=== PATIENT | male | born 1995 | race Caucasian/White ===

== ENCOUNTER 2017-01-12 21:27 | Inpatient (IN) | payer OTHER ==
[2017-01-12] MEDS ORDERED: RX INFO: IV CONTRAST WAS GIVEN 1 EACH MISC MISCELLANE PRN (23:53)
[2017-01-12] MEDS ORDERED: SODIUM CHLORIDE 0.9% 1,000 ML IV STA (23:53)
[2017-01-12] MEDS ORDERED: .ACETAMINOPHEN IV (PEDS) 1,000 MG in EMPTY BAG 1 BAG IVPB STA (23:53)
--- NOTE | 2017-01-12 23:56 | ED ---
Abdominal Pain HPI - General Source: patient, family, RN notes reviewed Mode of arrival: ambulatory Limitations: no limitations <Vicenta Mendieta - Last Filed: 01/13/17 02:54> <Ayaz Darden - Last Filed: 01/13/17 02:57> - General Chief Complaint: Abdominal Pain Stated Complaint: Abd Pain Time Seen by Provider: 01/12/17 23:49 - History of Present Illness Initial Comments: 21-year-old male presents to the emergency department with a chief complaint of right lower quadrant abdominal pain. Patient states that he started with just kind of generalized abdominal pain he tried to go the bathroom felt as if he was constipated surgical laxative. Patient states now all his pain has moved to the right lower quadrant. Patient stateshe started Around 6:00 As Well. Mental One Episode of Nausea. Patient States It's Very Tender When He Touches There Is Some He Was Concerned. Patient Denies Any Significant Health. Patient States the Pain Is about a 5 Out Of 10. Patient States That He Was Concerned Due To the Worsening Symptoms We Thought That He Should Be Evaluated. Patient denies any recent shortness of breath, chest pain, back pain, vomiting , numbness or tingling, dysuria or hematuria, constipation or diarrhea, headaches or visual changes, or any other current symptoms. (Vicenta Mendieta) - Related Data Home Medications Medication Instructions Recorded Confirmed No Known Home Medications [No 01/12/17 01/12/17 Known Home Medications] Allergies Allergy/AdvReac Type Severity Reaction Status Date / Time Penicillins Allergy Rash/Hives Verified 01/12/17 23:39 Review of Systems ROS Other: All systems not noted in ROS Statement are negative. <Vicenta Mendieta - Last Filed: 01/13/17 02:54> ROS Other: All systems not noted in ROS Statement are negative. <Ayaz Darden - Last Filed: 01/13/17 02:57> ROS Statement: Those systems with pertinent positive or pertinent negative responses have been documented in the HPI. Past Medical History Past Medical History: No Reported History History of Any Multi-Drug Resistant Organisms: None Reported Past Surgical History: Adenoidectomy Past Psychological History: No Psychological Hx Reported Smoking Status: Never smoker Past Alcohol Use History: None Reported Past Drug Use History: None Reported <Vicenta Mendieta - Last Filed: 01/13/17 02:54> General Exam Limitations: no limitations <Vicenta Mendieta - Last Filed: 01/13/17 02:54> <Ayaz Darden - Last Filed: 01/13/17 02:57> - General Exam Comments Initial Comments: General: The patient is awake and alert, in no distress, and does not appear acutely ill. Eye: Pupils are equal, round and reactive to light, extra-ocular movements are intact; there is normal conjunctiva bilaterally. No signs of icterus. Ears, nose, mouth and throat: There are moist mucous membranes. Neck: The neck is supple, there is no tenderness. Cardiovascular: There is a regular rate and rhythm. No murmur, rub or gallop is appreciated. Respiratory: Lungs are clear to auscultation, respirations are non-labored, breath sounds are equal. No wheezes, stridor, rales, or rhonchi. Gastrointestinal: Soft, non-distended, tender right lower quadrant of the abdomen without masses or organomegaly noted. There is no rebound or guarding present. No CVA tenderness. Bowel sounds are unremarkable. Back: There is no tenderness to palpation in the midline. There is no obvious deformity. No rashes noted. Musculoskeletal: Normal ROM, no tenderness, There is no pedal edema. There is no calf tenderness or swelling. Sensation intact. Pulses equal bilaterally 2+. Neurological: CN II-XII intact, There are no obvious motor or sensory deficits. Coordination appears grossly intact. Speech is normal. Skin: Skin is warm and dry and no rashes or lesions are noted. Psychiatric: Cooperative, appropriate mood & affect, normal judgment. (Vicenta Mendieta) Course <Vicenta Mendieta - Last Filed: 01/13/17 02:54> <Ayaz Darden - Last Filed: 01/13/17 02:57> Vital Signs 01/12/17 01/13/17 21:41 00:43 Temperature 100.7 F H 99 F Pulse Rate 68 100 Respiratory 20 20 Rate Blood Pressure 133/77 121/66 O2 Sat by Pulse 99 99 Oximetry - Reevaluation(s) Reevaluation #1: 01/13/17 02:57 I did personally do a paced states evaluation the patient did discuss findings with him and his father. Patient does have McBurney point tenderness there is elevation of the white count. CAT scan does show evidence of appendicitis with some fluid. I did discuss the case with Dr. Younger. Patient will be admitted to her with a.m. surgery pending. Patient is ALLERGIC to penicillin and will be placed on Cipro and Flagyl. (Ayaz Darden) Medical Decision Making - Lab Data Result diagrams: 01/13/17 00:17 01/13/17 00:17 - Radiology Data Radiology results: report reviewed, image reviewed <Vicenta Mendieta - Last Filed: 01/13/17 02:54> - Lab Data Result diagrams: 01/13/17 00:17 01/13/17 00:17 <Ayaz Darden - Last Filed: 01/13/17 02:57> - Medical Decision Making 21-year-old male presents emergency department with a chief complaint of abdominal pain. This and the patient does appear to have an acute appendicitis. This time patient does not have any surgical affiliation. At this time the patient case was discussed with Dr. Younger who states that he she would like the patient started on Cipro and Flagyl and they will arrange for surgery. (Vicenta Mendieta) - Lab Data Lab Results 01/12/17 01/13/17 01/13/17 Range/Units 00:17 00:17 00:17 WBC 16.4 H (4.0-11.0) k/uL RBC 5.38 (4.30-5.90) m/uL Hgb 16.0 (13.0-17.5) gm/dL Hct 47.2 (39.0-53.0) % MCV 87.8 (80.0-100.0) fL MCH 29.7 (25.0-35.0) pg MCHC 33.9 (31.0-37.0) g/dL RDW 12.8 (11.5-15.5) % Plt Count 223 (150-450) k/uL Neutrophils % 83 % Lymphocytes % 12 % Monocytes % 4 % Eosinophils % 1 % Basophils % 0 % Neutrophils # 13.6 H (1.3-7.7) k/uL Lymphocytes # 1.9 (1.0-4.8) k/uL Monocytes # 0.6 (0-1.0) k/uL Eosinophils # 0.1 (0-0.7) k/uL Basophils # 0.0 (0-0.2) k/uL Sodium 140 (137-145) mmol/L Potassium 4.3 (3.5-5.1) mmol/L Chloride 101 (98-107) mmol/L Carbon Dioxide 24 (22-30) mmol/L Anion Gap 15 mmol/L BUN 8 L (9-20) mg/dL Creatinine 0.95 (0.66-1.25) mg/dL Est GFR (MDRD) Af Amer >60 (>60 ml/min/1.73 sqM) Est GFR (MDRD) Non-Af >60 (>60 ml/min/1.73 sqM) Glucose 92 (74-99) mg/dL Calcium 9.6 (8.4-10.2) mg/dL Total Bilirubin 1.9 H (0.2-1.3) mg/dL AST 85 H (17-59) U/L ALT 31 (21-72) U/L Alkaline Phosphatase 57 (38-126) U/L Total Protein 7.6 (6.3-8.2) g/dL Albumin 4.7 (3.5-5.0) g/dL Amylase 34 (30-110) U/L Lipase 27 (23-300) U/L Urine Color Urine Appearance (Clear) Urine pH (5.0-8.0) Ur Specific [place] (1.001-1.035) Urine Protein (Negative) Urine Glucose (UA) (Negative) Urine Ketones (Negative) Urine Blood (Negative) Urine Nitrate (Negative) Urine Bilirubin (Negative) Urine Urobilinogen (<2.0) mg/dL Ur Leukocyte Esterase (Negative) Urine RBC (0-5) /hpf Urine WBC (0-5) /hpf Urine Mucus (None) /hpf Heterophile Antibody Negative (Negative) Influenza Type A RNA (Not Detectd) Influenza Type B (PCR) (Not Detectd) 01/13/17 01/13/17 Range/Units 00:17 01:19 WBC (4.0-11.0) k/uL RBC (4.30-5.90) m/uL Hgb (13.0-17.5) gm/dL Hct (39.0-53.0) % MCV (80.0-100.0) fL MCH (25.0-35.0) pg MCHC (31.0-37.0) g/dL RDW (11.5-15.5) % Plt Count (150-450) k/uL Neutrophils % % Lymphocytes % % Monocytes % % Eosinophils % % Basophils % % Neutrophils # (1.3-7.7) k/uL Lymphocytes # (1.0-4.8) k/uL Monocytes # (0-1.0) k/uL Eosinophils # (0-0.7) k/uL Basophils # (0-0.2) k/uL Sodium (137-145) mmol/L Potassium (3.5-5.1) mmol/L Chloride (98-107) mmol/L Carbon Dioxide (22-30) mmol/L Anion Gap mmol/L BUN (9-20) mg/dL Creatinine (0.66-1.25) mg/dL Est GFR (MDRD) Af Amer (>60 ml/min/1.73 sqM) Est GFR (MDRD) Non-Af (>60 ml/min/1.73 sqM) Glucose (74-99) mg/dL Calcium (8.4-10.2) mg/dL Total Bilirubin (0.2-1.3) mg/dL AST (17-59) U/L ALT (21-72) U/L Alkaline Phosphatase (38-126) U/L Total Protein (6.3-8.2) g/dL Albumin (3.5-5.0) g/dL Amylase (30-110) U/L Lipase (23-300) U/L Urine Color Yellow Urine Appearance Clear (Clear) Urine pH 6.0 (5.0-8.0) Ur Specific [place] 1.045 H (1.001-1.035) Urine Protein 1+ H (Negative) Urine Glucose (UA) Negative (Negative) Urine Ketones 3+ H (Negative) Urine Blood Negative (Negative) Urine Nitrate Negative (Negative) Urine Bilirubin Negative (Negative) Urine Urobilinogen 2.0 (<2.0) mg/dL Ur Leukocyte Esterase Negative (Negative) Urine RBC 1 (0-5) /hpf Urine WBC 3 (0-5) /hpf Urine Mucus Few H (None) /hpf Heterophile Antibody (Negative) Influenza Type A RNA Not Detected (Not Detectd) Influenza Type B (PCR) Not Detected (Not Detectd) Disposition Decision Date: 01/13/17 Decision Time: 02:29 <Vicenta Mendieta - Last Filed: 01/13/17 02:54> <Ayaz Darden - Last Filed: 01/13/17 02:57> Clinical Impression: Acute appendicitis with rupture Disposition: [facility] Condition: Stable Referrals: Gurjit Agarwal MD [Primary Care Provider] - 1-2 days
[2017-01-12] MEDS ORDERED: ACETAMINOPHEN IV (For NPO) 1,000 MG in EMPTY BAG 1 BAG IVPB STA (23:59)
[2017-01-13 00:28] LABS: Basophils % (A) 0 %; CHCM 34.2; Eosinophils # (A) 0.1 k/uL (0-0.7); Eosinophils % (A) 1 %; HCT 47.2 % (39.0-53.0); HDW 2.64; Luc # (Auto) 0.15; Luc % (Auto) 1; Lymphocytes # (A) 1.9 k/uL (1.0-4.8); Lymphocytes % (A) 12 %; MCH 29.7 pg (25.0-35.0); MCHC 33.9 g/dL (31.0-37.0); MCV 87.8 fL (80.0-100.0); Mean Platelet Volume 8.4; Monocytes # (A) 0.6 k/uL (0-1.0); Monocytes % (A) 4 %; Neutrophils # (A) 13.6 k/uL (1.3-7.7); Neutrophils % (A) 83 %; RBC 5.38 m/uL (4.30-5.90); RDW 12.8 % (11.5-15.5); WBC 16.4 k/uL (4.0-11.0); WBC (Perox) 16.52
[2017-01-13 00:38] LABS: ALT 31 U/L (21-72); AST 85 U/L (17-59); Alkaline Phosphatase 57 U/L (38-126); Amylase 34 U/L (30-110); Anion Gap 15 mmol/L; Blood Urea Nitrogen 8 mg/dL (9-20); Calcium 9.6 mg/dL (8.4-10.2); Carbon Dioxide 24 mmol/L (22-30); Chloride 101 mmol/L (98-107); Glucose 92 mg/dL (74-99); Non-African American GFR(MDRD) >60 (>60 ml/min/1.73 sqM); Potassium 4.3 mmol/L (3.5-5.1); Sodium 140 mmol/L (137-145); Total Bilirubin 1.9 mg/dL (0.2-1.3); Total Protein 7.6 g/dL (6.3-8.2)
[2017-01-13 01:28] LABS: Appearance,Urine Clear (Clear); Bilirubin,Urine Negative (Negative); Glucose,Urine (UA) Negative (Negative); Ketones,Urine 3+ (Negative); Leukocyte Esterase,Urine Negative (Negative); Mucus,Urine Few /hpf; Nitrite,Urine Negative (Negative); Particle Count 8748; Protein,Urine 1+ (Negative); RBC,Urine 1 /hpf (0-5); Specific Gravity,Urine 1.045 (1.001-1.035); UA Billing (MACRO vs. MICRO) MICRO; WBC,Urine 3 /hpf (0-5)
--- NOTE | 2017-01-13 02:05 | CT ---
EXAMINATION TYPE: CT abdomen pelvis w con DATE OF EXAM: 01/13/2017 1:11 AM COMPARISON: NONE HISTORY: pain, r/o appy CT DLP: 316.30 mGycm Automated exposure control for dose reduction was used. TECHNIQUE: Helical acquisition of images was performed from the lung bases through the pelvis. CONTRAST: Performed without Oral Contrast and with IV Contrast, patient injected with 100 mL of Omnipaque 300. FINDINGS: LUNG BASES: No significant abnormality is appreciated. LIVER/GB: No significant abnormality is appreciated. PANCREAS: No significant abnormality is seen. SPLEEN: No significant abnormality is seen. ADRENALS: No significant abnormality is seen. KIDNEYS: No significant abnormality is seen. RETROPERITONEAL ADENOPATHY: None visualized REPRODUCTIVE ORGANS: No significant abnormality is seen URINARY BLADDER: No significant abnormality is seen. PELVIC ADENOPATHY: None visualized. OSSEOUS STRUCTURES: No significant abnormality is seen. BOWEL: The appendix measures 8 mm in transverse diameter in the axial image 45 and showed surrounding phlegm on and inflammatory process with mild fluid collection with mucosal wall thickening and is also visua lized in the coronal images 35 and 37 and are suspicious for acute appendicitis most likely ruptured appendix. [id number] fecal material and gas is noted in the colon without significant obstruction. OTHER: IMPRESSION: ACUTE APPENDICITIS CHANGES MOST LIKELY WITH A RUPTURED APPENDIX DESCRIBED ABOVE WITH SMALL AMOUNT OF FREE FLUID SURROUNDING THE APPENDIX. A PHONE REPORT IS GIVEN TO MARIELLE CHO AT THE TIME OF THE DICTATION.
[2017-01-13] MEDS ORDERED: NALOXONE 0.4 MG/ML 1 ML VIAL IV PRN (02:30)
[2017-01-13] MEDS ORDERED: HYDROmorphone 1 MG/ML 1 ML SYRINGE IV PRN (02:30)
[2017-01-13] MEDS ORDERED: ACETAMINOPHEN TAB 325 MG TAB PO PRN (02:30)
[2017-01-13] MEDS ORDERED: ONDANSETRON 4 MG/2 ML VIAL IVP PRN (02:30)
[2017-01-13] MEDS ORDERED: HYDROcodone/APAP 5-325MG 1 EACH TAB PO PRN (02:30)
[2017-01-13] MEDS ORDERED: LEVOFLOXACIN 500MG-D5W PMX 500 MG in DEXTROSE/WATER 1 100ML.BAG IVPB STA (02:55)
[2017-01-13] MEDS ORDERED: metroNIDAZOLE-NS PMX 500 MG in SALINE 1 100ML.BAG IVPB STA (02:55)
[2017-01-13] MEDS: SODIUM CHLORIDE 0.9% 1,000 ML IV SCH ×2 (02:58→17:55)
[2017-01-13 03:54] VITALS: BMI 25.1
--- NOTE | 2017-01-13 04:51 | P.GSHP ---
History of Present Illness H&P Date: 01/13/17 Chief Complaint: Acute appendicitis 21 yr old male presents with right lower quadrant pain of 1 day duration.Pain started in epigastric region and then travelled to right lower quadrant. No fever,chills. Loss of appetite present - Review of Systems Comment: All negative except stated in GAMBELL Past Medical History Past Medical History: No Reported History History of Any Multi-Drug Resistant Organisms: None Reported Past Surgical History: Adenoidectomy Past Anesthesia/Blood Transfusion Reactions: No Reported Reaction Past Psychological History: No Psychological Hx Reported Smoking Status: Never smoker Past Alcohol Use History: None Reported Additional Past Alcohol Use History / Comment(s): very rare alcohol and marijuana use Past Drug Use History: None Reported - Past Family History Mother Additional Family Medical History / Comment(s): CHF Medications and Allergies Home Medications Medication Instructions Recorded Confirmed Type No Known Home Medications [No 01/12/17 01/12/17 History Known Home Medications] Allergies Allergy/AdvReac Type Severity Reaction Status Date / Time Penicillins Allergy Rash/Hives Verified 01/12/17 23:39 Surgical - Exam Vital Signs Temp Pulse Resp BP Pulse Ox 100.7 F H 68 20 133/77 99 01/12/17 21:41 01/12/17 21:41 01/12/17 21:41 01/12/17 21:41 01/12/17 21:41 General: A&Ox3 Chest: B/L BS+ Abdomen: Tender in RLQ with localized peritonitis Results - Labs 01/13/17 00:17 01/13/17 00:17 - Imaging CT scan - abdomen: other (CT scan reviewed- acute appendicitis) Assessment and Plan (1) Acute appendicitis with rupture Status: Acute Plan: 1. Laparoscopic appenectomy possible open 2. Risks, benefits and potential complications discussed including bleeding, infection, abscess and partial cecetomy 3. IV hydration 4. IV abx 5. Bilateral Scds
[2017-01-13] MEDS ORDERED: ONDANSETRON 4 MG/2 ML VIAL ONE (06:15)
[2017-01-13] MEDS ORDERED: GLYCOPYRROLATE 0.2 MG/ML 2 ML VIAL ONE (06:15)
[2017-01-13] MEDS ORDERED: MIDAZOLAM 2 MG/2 ML VIAL ONE (06:15)
[2017-01-13] MEDS ORDERED: fentaNYL (PF) 50 MCG/ML 2 ML AMP ONE (06:15)
[2017-01-13] MEDS ORDERED: LIDOCAINE 1% INJ 10MG/ML (20 ML MDV) ONE (06:15)
[2017-01-13] MEDS ORDERED: NEOSTIGMINE 1 MG/ML 10 ML VIAL ONE (06:15)
[2017-01-13] MEDS ORDERED: PROPOFOL 10 MG/ML 20 ML VIAL IV ONE (06:15)
[2017-01-13] MEDS ORDERED: ROCURONIUM BROMIDE 10 MG/ML 10 ML VIAL IV ONE (06:15)
[2017-01-13] MEDS ORDERED: KETOROLAC 30 MG/ML 1 ML VIAL ONE (06:15)
[2017-01-13] MEDS ORDERED: diphenhydrAMINE 50 MG/ML 1 ML VIAL ONE (06:15)
[2017-01-13] MEDS ORDERED: SODIUM CHLORIDE 0.9% 1,000 ML IV ONE (06:20)
[2017-01-13] MEDS ORDERED: BUPIVACAIN-EPI 0.25%-1:200,000 30 ML VIAL SQ ONE ×3 (06:42)
[2017-01-13] MEDS ORDERED: LACTATED RINGERS 1,000 ML IV ONE ×2 (06:47→08:02)
[2017-01-13 07:34] VITALS: RESP 16
[2017-01-13 08:42] VITALS: TEMP 97.2
[2017-01-13 13:36] VITALS: BP 137/79; PULSE 90
--- NOTE | 2017-01-13 13:41 | P.DS ---
Providers Date of admission: 01/13/17 02:57 Expected date of discharge: 01/13/17 Attending physician: Radha Younger Primary care physician: Gurjit Agarwal [facility] Course: Very pleasant 21-year-old male who presented on the day of admission to the emergency room with a 1 day duration of experiencing right lower quadrant pain. Patient stated it started in the epigastric region radiated to the right lower quadrant. Denied any fever chills. Denied a loss of appetite denied any change in bowel habits. Patient stated at first he thought he was constipated. He became concerned when the pain persisted involving the right lower quadrant. Patient stated he had one episode of a nausea sensation. Subsequently the patient did come into the emergency room to be evaluated for the above-mentioned symptoms patient was seen in the emergency room. Was noted to have a temp of 100.7. White count 16.4. Patient was started on Cipro and Flagyl. The CAT scan did show evidence of appendicitis with some fluid. Patient was seen by Dr. Younger patient was taken to the operating room on January 13 where he underwent a laparoscopic appendectomy for acute appendicitis with rupture. Postop patient remained afebrile complaint Tylenol is effective for pain Impression discharge diagnosis Present on admission persistent right lower quadrant pain with nausea vomiting suspect due to acute appendicitis Status post laparoscopic appendectomy for acute appendicitis with rupture Present on admission febrile leukocytosis suspect due to acute pancreatitis The above dictated assessment and findings were discussed with dr younger Impression and the plan of care have been dictated as directed. Jeanette Naranjo nurse practitioner acting as a scribe for dr younger Patient Condition at Discharge: Stable Plan - Discharge Summary New Discharge Prescriptions: Acetaminophen Tab [Tylenol Tab] 650 mg PO Q6H PRN #30 tablet PRN Reason: Mild Pain Ibuprofen [Motrin] 200 mg PO Q6HR PRN #30 tab PRN Reason: Mild Pain Discharge Medication List Acetaminophen Tab [Tylenol Tab] 650 mg PO Q6H PRN #30 tablet 01/13/17 [Rx] Ibuprofen [Motrin] 200 mg PO Q6HR PRN #30 tab 01/13/17 [Rx] Follow up Appointment(s)/Referral(s): Radha Younger MD [STAFF PHYSICIAN] - 01/18/17 2:00 pm Gurjit Agarwal MD [Primary Care Provider] - 1 Week Activity/Diet/Wound Care/Special Instructions: No heavy lifting until seen in a follow-up visit with Dr. Younger Discharge Disposition: HOME SELF-CARE
[2017-01-13] MEDS ORDERED: metroNIDAZOLE-NS PMX 500 MG in SALINE 1 100ML.BAG IVPB SCH (16:00)
[2017-01-14] MEDS ORDERED: LEVOFLOXACIN 500MG-D5W PMX 500 MG in DEXTROSE/WATER 1 100ML.BAG IVPB SCH (06:00)
--- NOTE | 2017-01-19 08:17 | P.OP ---
Date of Procedure: 01/13/17 Preoperative Diagnosis: Acute appendicitis Postoperative Diagnosis: Same Procedure(s) Performed: Laparoscopic appendectomy Implants: NA Anesthesia: GETA, local Surgeon: Radha Younger Pathology: other Condition: stable Disposition: PACU Indications for Procedure: 21 years old male presents with acute right lower quadrant pain. Computed tomography scan suggestive of acute appendicitis. Informed consent obtained and patient elected to undergo laparoscopic appendicectomy possible open. Risks , benefits and potential complications including bleeding, infection were explained. Operative Findings: Acute appendicitis Description of Procedure: The patient was brought to the operating room and placed in supine position with left arm tucked and a footboard was placed. General anesthesia with endotracheal intubation was performed as per anesthesia team. A Higgins catheter was inserted under sterile aseptic precautions. Chlorhexidine was used to prep the abdomen followed by application of sterile drapes. A timeout was performed to verify correct patient and correct procedure. Patient was confirmed to receive perioperative IV antibiotics, subcutaneous heparin for VTE prophylaxis and bilateral SCDs were placed. A 5 mm skin incision was made in the left anterior axillary line and a Veress needle was inserted into the peritoneal cavity and CO2 insufflated to a pressure of 15 mmHg. A 5 mm Optiview trocar was loaded on a 5 mm 30 laparoscope and peritoneal cavity was entered under direct vision. An additional 5 mm trocar was placed in the suprapubic location in midline and a 12 mm trocar in the supraumbilical location. Patient was placed in Trendelenburg with right side up. The appendix was identified. It was dilated and inflamed. There were fibrinopurulent exudates in the right lower quadrant. The appendix was grasped using a laparoscopic Jose instrument. A suction irrigation device was used to gently dissecting appendix from the surrounding tissue. All the fibrinous exudates were removed. A window was made in the mesoappendix close to the cecal base using a [place] dissector. Laparoscopic Ligasure was used to divide the mesoappendix. No bleeding noted from the mesoappendiceal stump. The appendix was divided at its base, at the confluence of three tenia using Ethicon stapler 45 blue load. The staple line was intact without evidence of bleeding. The appendix was placed in an endocatch bag and was retrieved through the infraumbilical port site. All the trocar sites were examined and no evidence of bleeding. Excess fluid was suctioned out. The 12 mm trocar site was closed using three transfascial sutures of 0 Vicryl which were placed using a [email or web address] device. Local anesthetic was infiltrated along all the ports sites. The sponge, instrument and needle count were correct x2. CO2 gas was evacuated and trocars were removed. 4-0 Monocryl was used to close the skin incisions followed by Dermabond skin glue. Higgins catheter was discontinued. Patient tolerated the procedure well and was taken to post anesthesia care unit in stable condition.
== END 2017-01-13 18:50 | disposition home or self-care (01) | DRG 340 ==
LOC: EC 21:27 → 6PED 01-13 02:57
PROVIDERS: ADMIT Surgery; ATTEND Surgery
PROC: 0DTJ4ZZ Resection of Appendix, Percutaneous Endoscopic Approach (ICD-10-PCS; principal; 2017-01-13 06:00)
DX: K35.2 Acute appendicitis with generalized peritonitis (principal); F12.90 Cannabis use, unspecified, uncomplicated; Z88.0 Allergy status to penicillin; Z82.49 Family history of ischemic heart disease and other diseases of the circulatory system
CPT/HCPCS: 36415; 74177; 80053; 81001; 82150; 83690; 85025; 86308; 86850; 86900; 86901; 87040; 87502; 88304; 96365; 96367; 99285

== ENCOUNTER 2018-02-12 10:31 | Emergency (ER) | payer OTHER ==
--- NOTE | 2018-02-12 11:15 | ED ---
ENT HPI - General Chief complaint: ENT Stated complaint: left ear pain Time Seen by Provider: 02/12/18 10:41 Source: patient, RN notes reviewed Mode of arrival: ambulatory Limitations: no limitations - History of Present Illness Initial comments: This is a 22-year-old male who started developing left ear pain with congestion 3 days ago who 2 days ago started Keflex who presents today stating his pain is better but he still having drainage and discharge and hearing out of his left ear. He denies any fevers chills sweats he does have a slight cough he believes is secondary to his nasal drainage. No head neck or back pain no other symptoms at this time he states he rarely gets any type of upper respiratory infection. He does not have a sore throat. He still has his tonsils with did have adenoidectomy in the past. MD complaint: ear pain - Related Data Home Medications Medication Instructions Recorded Confirmed Cephalexin [Keflex] 500 mg PO TID 02/12/18 02/12/18 Previous Rx's Medication Instructions Recorded Azithromycin [Zithromax Z-pack] 250 mg PO DIRECTED #6 tab 02/12/18 Ciprofloxacin-Dexameth [Ciprodex 4 drops LEFT EAR BID #3 ml 02/12/18 Otic Susp] Guaifenesin/Pseudoephedrne HCl 1 each PO Q12HR #14 tab.er.12h 02/12/18 [Mucinex D ER Tablet] Allergies Allergy/AdvReac Type Severity Reaction Status Date / Time Penicillins Allergy Rash/Hives Verified 02/12/18 10:45 Review of Systems ROS Statement: Those systems with pertinent positive or pertinent negative responses have been documented in the HPI. ROS Other: All systems not noted in ROS Statement are negative. Past Medical History Past Medical History: No Reported History Additional Past Medical History / Comment(s): sinusitis History of Any Multi-Drug Resistant Organisms: None Reported Past Surgical History: Adenoidectomy Past Anesthesia/Blood Transfusion Reactions: No Reported Reaction Past Psychological History: No Psychological Hx Reported Smoking Status: Current some day smoker Past Alcohol Use History: Occasional Past Drug Use History: None Reported - Past Family History Mother Additional Family Medical History / Comment(s): CHF General Exam - General Exam Comments Initial Comments: This is a well-developed well-nourished awake alert oriented 3 male Limitations: no limitations General appearance: alert, in no apparent distress Head exam: Present: atraumatic, normocephalic, normal inspection Eye exam: Present: normal appearance ENT exam: Present: normal oropharynx, mucous membranes moist, other ( Examination the ears the right ear appears be within normal limits left ear demonstrates some exudate in the canal some dullness of the tympanic membrane no obvious perforation however there is some bloody discharge noted in the canal. The patient when blowing his nose has no sensation of air passage to the TM) Neck exam: Present: normal inspection. Absent: tenderness, meningismus, lymphadenopathy Respiratory exam: Present: normal lung sounds bilaterally. Absent: respiratory distress, wheezes, rales, rhonchi, stridor Cardiovascular Exam: Present: regular rate, normal rhythm, normal heart sounds. Absent: systolic murmur, diastolic murmur, rubs, gallop, clicks Extremities exam: Present: normal inspection, full ROM Back exam: Present: normal inspection, full ROM. Absent: tenderness Neurological exam: Present: alert, oriented X3, CN II-XII intact Psychiatric exam: Present: normal affect, normal mood Skin exam: Present: warm, dry, intact, normal color. Absent: rash Course Vital Signs 02/12/18 10:34 Temperature 98.2 F Pulse Rate 72 Respiratory 18 Rate Blood Pressure 141/87 O2 Sat by Pulse 100 Oximetry Medical Decision Making - Medical Decision Making No further workup was currently indicated patient will be discharged with a changes antibiotic to Augmentin also Ciprodex drops for his ear I did recommend [id number] Mucinex and nasal saline. He will be following up with his doctor next 1-2 days. He is to stop the Keflex Disposition Clinical Impression: Otitis media, Otitis externa Disposition: HOME SELF-CARE Condition: Good Instructions: Otitis Media (ED), Otitis Externa (ED) Additional Instructions: Saline nasal spray as needed Prescriptions: Azithromycin [Zithromax Z-pack] 250 mg PO DIRECTED #6 tab Ciprofloxacin-Dexameth [Ciprodex Otic Susp] 4 drops LEFT EAR BID #3 ml Guaifenesin/Pseudoephedrne HCl [Mucinex D ER Tablet] 1 each PO Q12HR #14 tab.er.12h Referrals: Zheng Camarillo MD [Primary Care Provider] - 1-2 days
[2018-02-12 11:22] VITALS: BP 128/59; PULSE 56; RESP 16; TEMP 98
--- NOTE | 2018-02-12 11:24 | ED ---
Medical Decision Making - Medical Decision Making I did discuss the penicillin ALLERGY with the patient apparently he has an amoxicillin ALLERGY he had as a baby he also additionally. Also he is ALLERGIC to azithromycin. Disposition Clinical Impression: Otitis media, Otitis externa Disposition: HOME SELF-CARE Condition: Good Instructions: Otitis Externa (ED), Otitis Media (ED) Additional Instructions: Saline nasal spray as needed Prescriptions: Cefuroxime [Ceftin] 250 mg PO BID #20 tablet Ciprofloxacin-Dexameth [Ciprodex Otic Susp] 4 drops LEFT EAR BID #3 ml Guaifenesin/Pseudoephedrne HCl [Mucinex D ER Tablet] 1 each PO Q12HR #14 tab.er.12h Referrals: Zheng Camarillo MD [Primary Care Provider] - 1-2 days
== END 2018-02-12 11:31 | disposition home or self-care (01) ==
LOC: EC 10:31
DX: H60.92 Unspecified otitis externa, left ear (principal); H66.92 Otitis media, unspecified, left ear; R05 Cough; J34.89 Other specified disorders of nose and nasal sinuses; F17.200 Nicotine dependence, unspecified, uncomplicated; Z88.0 Allergy status to penicillin; Z88.1 Allergy status to other antibiotic agents; Z90.89 Acquired absence of other organs
CPT/HCPCS: 99282

== ENCOUNTER 2019-05-02 13:53 | Emergency (ER) | payer OTHER ==
[2019-05-02 14:02] VITALS: BP 123/73; PULSE 86; RESP 16
[2019-05-02] MEDS ORDERED: SODIUM CHLORIDE 0.9% 1,000 ML IV ONE (14:16)
[2019-05-02] MEDS ORDERED: ONDANSETRON 4 MG/2 ML VIAL IVP STA (14:16)
[2019-05-02] MEDS ORDERED: ACETAMINOPHEN TAB 325 MG TAB PO STA (14:16)
--- NOTE | 2019-05-02 14:25 | ED ---
Abdominal Pain HPI - General Chief Complaint: Abdominal Pain Stated Complaint: abdominal pain/vomiting Time Seen by Provider: 05/02/19 14:06 Source: patient Mode of arrival: ambulatory Limitations: no limitations - History of Present Illness Initial Comments: 24-year-old male with history of previous appendectomy but no other significant past medical history presents today for chief complaint of upper abdominal pain, fever or vomiting since this morning. Patient states he has had fevers upper abdominal pain since this morning. Patient states the pain radiates towards his mid back. Pt states the pain is constant. Pt denies any known alleviating or aggravating factors. Patient states he has not been able to keep any food down after eating. Patient states she was concerned it was his gallbladder since his mother has history of gallbladder disease with previous cholecystectomy and felt like this could be the cause. Pt states that his stool has been looser than normal today. Denies any jasmin diarrhea. Denies melena or hematochezia. Patient denies any hematemesis. She has a chest pain shortness of breath. Patient denies any cough sore throat hematuria dysuria or urgency frequency midline back pain neck stiffness photophobia or any other symptoms. Upon arrival pt has low grade fever. Remaining VS WNL. - Related Data Previous Rx's Medication Instructions Recorded Ondansetron Odt [Zofran Odt] 4 mg PO Q8HR PRN 3 Days #9 tab 05/02/19 Allergies Allergy/AdvReac Type Severity Reaction Status Date / Time Penicillins Allergy Rash/Hives Verified 05/02/19 14:32 azithromycin [From Zithromax] AdvReac Unknown Verified 05/02/19 14:33 peach AdvReac Nausea & Verified 05/02/19 14:33 Vomiting & Diarrhea Review of Systems ROS Statement: Those systems with pertinent positive or pertinent negative responses have been documented in the HPI. ROS Other: All systems not noted in ROS Statement are negative. Past Medical History Past Medical History: No Reported History Additional Past Medical History / Comment(s): sinusitis History of Any Multi-Drug Resistant Organisms: None Reported Past Surgical History: Adenoidectomy, Appendectomy Past Anesthesia/Blood Transfusion Reactions: No Reported Reaction Past Psychological History: No Psychological Hx Reported Smoking Status: Current some day smoker Past Alcohol Use History: Occasional Past Drug Use History: Marijuana - Past Family History Mother Additional Family Medical History / Comment(s): CHF General Exam - General Exam Comments Initial Comments: General: The patient is awake and alert, in no distress, and does not appear acutely ill. Eye: +3 mm pupils are equal, round and reactive to light, extra-ocular movements are intact. No nystagmus. There is normal conjunctiva bilaterally. No signs of icterus. Ears, nose, mouth and throat: There are moist mucous membranes and no oral lesions. Neck: The neck is supple, there is no tenderness or JVD. Cardiovascular: There is a regular rate and rhythm. No murmur, rub or gallop is appreciated. Respiratory: Lungs are clear to auscultation, respirations are non-labored, breath sounds are equal. No wheezes, stridor, rales, or rhonchi. Gastrointestinal: Soft, non-distended, abdomen nontender to palpation, no rigidity-states hands are cold, (-) [place] sign without masses or organomegaly noted. There is no rebound or guarding present. No CVA tenderness. Bowel sounds are unremarkable. Musculoskeletal: No midline tenderness to palpation of the thoracic, or lumbar spine. No nuchal rigidity. (-) Brudzinski, (-) Kernig Normal ROM, no tenderness. Strength 5/5. Sensation intact. Radial pulses equal bilaterally 2+. Neurological: A&O x 3. CN II-XII intact, There are no obvious motor or sensory deficits. Coordination appears grossly intact. Speech is normal. Skin: Skin is warm and dry and no rashes or lesions are noted. Psychiatric: Cooperative, appropriate mood & affect, normal judgment. Limitations: no limitations Course Vital Signs 05/02/19 05/02/19 13:59 15:51 Temperature 99.8 F H 98.9 F Pulse Rate 86 Respiratory 16 Rate Blood Pressure 123/73 O2 Sat by Pulse 100 Oximetry Medical Decision Making - Medical Decision Making 24-year-old male presents today for chief complaint of abdominal pain. Patient states that pain is above the bellybutton. Patient has had vomiting and loose stools today. Patient has had a fever. Patient states he has been congested. Patient has history of appendectomy. Patient denies any lower abdominal pain. Patient denies any hematemesis. Patient is nontender on examination but points to the epigastric region when describing pain states pain radiates to back. Lipase within normal limits. Patient is significant leukocytosis. Mild increase in neutrophils. Patient is given IV fluids. Patient states this helped alleviate nausea no episodes of vomiting emergency department. No clincal signs of dehydration. No hematuria. Patient has no rigidity no guarding no rebound tenderness. And low suspicion for acute abdomen. Patient was concerned of disease in the gallbladder, US revealed no acute abnormalities. (-) [place] sign. Anticipate guidance was discussed with patient including immediate return for worsening pain, at this time I feel this is most likely a viral illness with congestion, diarrhea and vomiting. She'll be provided prescription for Zofran for symptomatic treatment. Return parameters were discussed at length with patient verbalizes understanding. He was discharged apearing well after discussing case with Dr. Araiza - Lab Data Result diagrams: 05/02/19 14:40 05/02/19 14:40 Lab Results 05/02/19 05/02/19 05/02/19 Range/Units 14:40 14:40 14:40 WBC 9.8 (3.8-10.6) k/uL RBC 5.22 (4.30-5.90) m/uL Hgb 15.0 (13.0-17.5) gm/dL Hct 44.0 (39.0-53.0) % MCV 84.3 (80.0-100.0) fL MCH 28.8 (25.0-35.0) pg MCHC 34.1 (31.0-37.0) g/dL RDW 13.3 (11.5-15.5) % Plt Count 188 (150-450) k/uL Neutrophils % 87 % Lymphocytes % 8 % Monocytes % 3 % Eosinophils % 1 % Basophils % 0 % Neutrophils # 8.6 H (1.3-7.7) k/uL Lymphocytes # 0.8 L (1.0-4.8) k/uL Monocytes # 0.3 (0-1.0) k/uL Eosinophils # 0.1 (0-0.7) k/uL Basophils # 0.0 (0-0.2) k/uL Sodium 139 (137-145) mmol/L Potassium 3.9 (3.5-5.1) mmol/L Chloride 106 (98-107) mmol/L Carbon Dioxide 24 (22-30) mmol/L Anion Gap 9 mmol/L BUN 9 (9-20) mg/dL Creatinine 0.75 (0.66-1.25) mg/dL Est GFR (CKD-EPI)AfAm >90 (>60 ml/min/1.73 sqM) Est GFR (CKD-EPI)NonAf >90 (>60 ml/min/1.73 sqM) Glucose 93 (74-99) mg/dL Plasma Lactic Acid Tobin 0.9 (0.7-2.0) mmol/L Calcium 9.3 (8.4-10.2) mg/dL Total Bilirubin 1.2 (0.2-1.3) mg/dL AST 53 (17-59) U/L ALT 12 L (21-72) U/L Alkaline Phosphatase 47 (38-126) U/L Total Protein 6.9 (6.3-8.2) g/dL Albumin 4.4 (3.5-5.0) g/dL Amylase 56 (30-110) U/L Lipase 61 (23-300) U/L Urine Color Urine Appearance (Clear) Urine pH (5.0-8.0) Ur Specific [place] (1.001-1.035) Urine Protein (Negative) Urine Glucose (UA) (Negative) Urine Ketones (Negative) Urine Blood (Negative) Urine Nitrite (Negative) Urine Bilirubin (Negative) Urine Urobilinogen (<2.0) mg/dL Ur Leukocyte Esterase (Negative) 05/02/19 Range/Units 14:40 WBC (3.8-10.6) k/uL RBC (4.30-5.90) m/uL Hgb (13.0-17.5) gm/dL Hct (39.0-53.0) % MCV (80.0-100.0) fL MCH (25.0-35.0) pg MCHC (31.0-37.0) g/dL RDW (11.5-15.5) % Plt Count (150-450) k/uL Neutrophils % % Lymphocytes % % Monocytes % % Eosinophils % % Basophils % % Neutrophils # (1.3-7.7) k/uL Lymphocytes # (1.0-4.8) k/uL Monocytes # (0-1.0) k/uL Eosinophils # (0-0.7) k/uL Basophils # (0-0.2) k/uL Sodium (137-145) mmol/L Potassium (3.5-5.1) mmol/L Chloride (98-107) mmol/L Carbon Dioxide (22-30) mmol/L Anion Gap mmol/L BUN (9-20) mg/dL Creatinine (0.66-1.25) mg/dL Est GFR (CKD-EPI)AfAm (>60 ml/min/1.73 sqM) Est GFR (CKD-EPI)NonAf (>60 ml/min/1.73 sqM) Glucose (74-99) mg/dL Plasma Lactic Acid Tobin (0.7-2.0) mmol/L Calcium (8.4-10.2) mg/dL Total Bilirubin (0.2-1.3) mg/dL AST (17-59) U/L ALT (21-72) U/L Alkaline Phosphatase (38-126) U/L Total Protein (6.3-8.2) g/dL Albumin (3.5-5.0) g/dL Amylase (30-110) U/L Lipase (23-300) U/L Urine Color Yellow Urine Appearance Clear (Clear) Urine pH 6.5 (5.0-8.0) Ur Specific [place] 1.023 (1.001-1.035) Urine Protein Negative (Negative) Urine Glucose (UA) Negative (Negative) Urine Ketones Negative (Negative) Urine Blood Negative (Negative) Urine Nitrite Negative (Negative) Urine Bilirubin Negative (Negative) Urine Urobilinogen 2.0 (<2.0) mg/dL Ur Leukocyte Esterase Negative (Negative) Disposition Clinical Impression: Vomiting, Abdominal pain Disposition: HOME SELF-CARE Condition: Good Instructions (If sedation given, give patient instructions): Acute Nausea and Vomiting (ED), Abdominal Pain (ED) Additional Instructions: Please use medication as discussed. Please follow-up with family doctor in the next 2 days. If symptoms do not improve or worsen, please return to the ER. Please return to emergency room if the symptoms increase or worsen or for any other concerns. Prescriptions: Ondansetron Odt [Zofran Odt] 4 mg PO Q8HR PRN 3 Days #9 tab PRN Reason: Vomiting Is patient prescribed a controlled substance at d/c from ED?: No Referrals: Zheng Camarillo MD [Primary Care Provider] - 1-2 days Time of Disposition: 15:49
[2019-05-02 14:53] LABS: Appearance,Urine Clear (Clear); Bilirubin,Urine Negative (Negative); Blood,Urine Negative (Negative); Color,Urine Yellow; Glucose,Urine (UA) Negative (Negative); Ketones,Urine Negative (Negative); Leukocyte Esterase,Urine Negative (Negative); Nitrite,Urine Negative (Negative); PH, Urine 6.5 (5.0-8.0); Protein,Urine Negative (Negative); Specific Gravity,Urine 1.023 (1.001-1.035)
[2019-05-02 15:02] LABS: Basophils % (A) 0 %; Eosinophils # (A) 0.1 k/uL (0-0.7); Eosinophils % (A) 1 %; Lymphocytes # (A) 0.8 k/uL (1.0-4.8); Lymphocytes % (A) 8 %; MCH 28.8 pg (25.0-35.0); MCHC 34.1 g/dL (31.0-37.0); MCV 84.3 fL (80.0-100.0); Mean Platelet Volume 8.4; Monocytes # (A) 0.3 k/uL (0-1.0); Monocytes % (A) 3 %; Neutrophils # (A) 8.6 k/uL (1.3-7.7); Neutrophils % (A) 87 %; Platelet Count 188 k/uL (150-450); RBC 5.22 m/uL (4.30-5.90); RDW 13.3 % (11.5-15.5); WBC 9.8 k/uL (3.8-10.6)
[2019-05-02 15:10] LABS: ALT 12 U/L (21-72); AST 53 U/L (17-59); Albumin 4.4 g/dL (3.5-5.0); Alkaline Phosphatase 47 U/L (38-126); Amylase 56 U/L (30-110); Anion Gap 9 mmol/L; Blood Urea Nitrogen 9 mg/dL (9-20); Calcium 9.3 mg/dL (8.4-10.2); Carbon Dioxide 24 mmol/L (22-30); Chloride 106 mmol/L (98-107); Glucose 93 mg/dL (74-99); Lipase 61 U/L (23-300); Potassium 3.9 mmol/L (3.5-5.1); Sodium 139 mmol/L (137-145); Total Bilirubin 1.2 mg/dL (0.2-1.3); Total Protein 6.9 g/dL (6.3-8.2)
--- NOTE | 2019-05-02 15:46 | US ---
EXAMINATION TYPE: US abdomen limited DATE OF EXAM: 05/02/2019 COMPARISON: CT 2017 CLINICAL HISTORY: epigastric pain/vomiting. Epigastric pain and vomiting x 1 day. Hx appendectomy. EXAM MEASUREMENTS: Liver Length: 14.5 cm Gallbladder Wall: 0.21 cm CBD: 0.34 cm Right Kidney: 11.6 x 5.6 x 3.7 cm *Pt gassy. Pancreas: appears wnl Liver: appears wnl Gallbladder: appears anechoic. folds seen. Evidence for sonographic Mullne's sign: no CBD: 0.34 Right Kidney: No hydronephrosis or masses seen Portal vein measures 16 mm. Which is within normal limits. IMPRESSION: No shadowing mobile gallstones or ultrasound evidence for acute cholecystitis.
[2019-05-02 15:52] VITALS: TEMP 98.9
== END 2019-05-02 16:15 | disposition home or self-care (01) ==
LOC: EC 13:53
DX: R10.9 Unspecified abdominal pain (principal); R11.10 Vomiting, unspecified; R50.9 Fever, unspecified; R09.89 Other specified symptoms and signs involving the circulatory and respiratory systems; D72.829 Elevated white blood cell count, unspecified; R19.7 Diarrhea, unspecified; F17.200 Nicotine dependence, unspecified, uncomplicated; Z88.0 Allergy status to penicillin; Z91.018 Allergy to other foods; Z88.1 Allergy status to other antibiotic agents; Z90.49 Acquired absence of other specified parts of digestive tract
CPT/HCPCS: 36415; 80053; 82150; 83605; 83690; 85025; 81003; 87040; 76705; 99284; 96374; 96361 ×2; J2405

== ENCOUNTER 2020-09-12 16:14 | Emergency (ER) | payer OTHER ==
[2020-09-12 16:31] VITALS: BP 143/75; PULSE 66; RESP 20; TEMP 98.3
--- NOTE | 2020-09-12 16:35 | ED ---
Wound/Laceration HPI - General Chief Complaint: Wound/Laceration Stated Complaint: STAB RAZOR BLADE LEFT HAND Time Seen by Provider: 09/12/20 16:31 Source: patient Mode of arrival: ambulatory Limitations: no limitations - History of Present Illness Initial Comments: Patient is a 25-year-old male presenting to emergency Department with a chief complaint of laceration. Patient states she was using a razor blade to open up a box when he lacerated the posterior aspect of the left hand. Patient reports this occurred about one hour prior to arrival. Patient reports the pain is minimal at this time. Tetanus is up-to-date. Denies any numbness or tingling. States he has full range of motion in all his fingers. - Related Data Previous Rx's Medication Instructions Recorded Ondansetron Odt [Zofran Odt] 4 mg PO Q8HR PRN 3 Days #9 tab 05/02/19 Allergies Allergy/AdvReac Type Severity Reaction Status Date / Time Penicillins Allergy Rash/Hives Verified 09/12/20 16:31 azithromycin [From Zithromax] AdvReac Unknown Verified 09/12/20 16:31 peach AdvReac Nausea & Verified 09/12/20 16:31 Vomiting & Diarrhea Review of Systems ROS Statement: Those systems with pertinent positive or pertinent negative responses have been documented in the HPI. ROS Other: All systems not noted in ROS Statement are negative. Past Medical History Past Medical History: No Reported History Additional Past Medical History / Comment(s): sinusitis History of Any Multi-Drug Resistant Organisms: None Reported Past Surgical History: Adenoidectomy, Appendectomy Past Anesthesia/Blood Transfusion Reactions: No Reported Reaction Past Psychological History: No Psychological Hx Reported Smoking Status: Current every day smoker, Vaper Past Alcohol Use History: Occasional Past Drug Use History: Marijuana - Past Family History Mother Additional Family Medical History / Comment(s): CHF General Exam Limitations: no limitations General appearance: alert, in no apparent distress Head exam: Present: atraumatic, normocephalic, normal inspection Eye exam: Present: normal appearance, PERRL, EOMI Pupils: Present: normal accommodation ENT exam: Present: normal exam, normal oropharynx, mucous membranes moist, TM's normal bilaterally, normal external ear exam Neck exam: Present: normal inspection, full ROM. Absent: tenderness Respiratory exam: Present: normal lung sounds bilaterally. Absent: respiratory distress, wheezes, rales Cardiovascular Exam: Present: regular rate, normal rhythm, normal heart sounds Extremities exam: Present: full ROM, normal capillary refill, other (+2 ulnar and radial pulses bilaterally. Sensation intact in the left hand.). Absent: normal inspection (Small laceration on the posterior aspect of the left hand measuring approximately 1 cm in length.), tenderness Back exam: Present: normal inspection, full ROM. Absent: tenderness, CVA tenderness (R), CVA tenderness (L) Neurological exam: Present: alert, oriented X3, normal gait Psychiatric exam: Present: normal affect, normal mood Skin exam: Present: warm, dry, intact, normal color Course Vital Signs 09/12/20 16:29 Temperature 98.3 F Pulse Rate 66 Respiratory 20 Rate Blood Pressure 143/75 O2 Sat by Pulse 99 Oximetry Procedures - Laceration Laceration #1 Consent Obtained: verbal consent Indication: laceration Site: upper extremity (10), hand Size (cm): 1 Description: linear, clean Depth: simple, single layer Sedation/Analgesia: none Anesthetic Used: lidocaine 1% Anesthesia Technique: local infiltration Amount (mls): 2 Pre-repair: irrigated extensively, deep structures intact Type of Sutures: nylon Size of Sutures: 4-0 Number of Sutures: 2 Technique: simple, interrupted Patient Tolerated Procedure: well, no complications Medical Decision Making - Medical Decision Making 25-year-old male with laceration to left hand. He is neurovascularly intact. Laceration a superficial 1 cm. Laceration repaired 2 sutures after thorough irrigation. Patient tolerate the procedure well. Patient discharged and advised to return in 10 days for suture removal. Case discussed with physician. Disposition Clinical Impression: Laceration Disposition: HOME SELF-CARE Condition: Stable Instructions (If sedation given, give patient instructions): Care For Your Stitches (DC), Laceration (DC) Additional Instructions: Please return to the emergency room in 8-10 days to have sutures removed. Please watch for any signs of infection which may include increased pain, swelling, redness, fever or chills. Please return to emergency room for any signs of infection do occur. Please use clean soap and water over the area to prevent scabbing over your stitches. Please leave wound covered for the first 24-48 hours and then leave wound open to air. Please return to the emergency room for any other concerns. Is patient prescribed a controlled substance at d/c from ED?: No Referrals: Zheng Camarillo MD [Primary Care Provider] - 1-2 days Time of Disposition: 17:16
[2020-09-12] MEDS ORDERED: LIDOCAINE 1% INJ 10MG/ML (20 ML MDV) SQ ONE (16:41)
== END 2020-09-12 17:26 | disposition home or self-care (01) ==
LOC: EC 16:14
DX: S61.412A Laceration without foreign body of left hand, initial encounter (principal); F17.290 Nicotine dependence, other tobacco product, uncomplicated; Z88.0 Allergy status to penicillin; Z91.018 Allergy to other foods; Z88.1 Allergy status to other antibiotic agents; W26.8XXA Contact with other sharp object(s), not elsewhere classified, initial encounter; Y92.009 Unspecified place in unspecified non-institutional (private) residence as the place of occurrence of the external cause
CPT/HCPCS: 99282; 12001; J2001

== ENCOUNTER 2021-06-19 13:37 | Emergency (ER) | payer OTHER ==
[2021-06-19] MEDS ORDERED: ACETAMINOPHEN TAB 500 MG TAB PO STA (14:18)
--- NOTE | 2021-06-19 14:51 | XR ---
EXAMINATION TYPE: XR chest 2V DATE OF EXAM: 06/19/2021 COMPARISON: None INDICATION: Fever TECHNIQUE: Frontal and lateral views of the chest are obtained. FINDINGS: The heart size is normal. The pulmonary vasculature is normal. The lungs are clear. IMPRESSION: 1. No acute pulmonary process.
--- NOTE | 2021-06-19 14:51 | ED ---
Fever HPI - General Chief Complaint: Fever Stated Complaint: Fever Time Seen by Provider: 06/19/21 14:17 Source: patient, RN notes reviewed Mode of arrival: ambulatory Limitations: no limitations - History of Present Illness Initial Comments: 26-year-old male presents emergency Department with chief complaint fever cough congestion body aches. Patient states his symptoms today. Patient states his headache the toe. Patient states he has a cough. Patient does complain of mild sore throat. No neck pain or neck stiffness mild headache. Patient states his daughter is sick with similar symptoms was placed on antibiotics has improved greatly. Patient has no abdominal pain patient offers no complaints. - Related Data Previous Rx's Medication Instructions Recorded Ondansetron Odt [Zofran Odt] 4 mg PO Q8HR PRN 3 Days #9 tab 05/02/19 Cefuroxime Axetil [Ceftin] 500 mg PO BID #20 tab 06/19/21 Allergies Allergy/AdvReac Type Severity Reaction Status Date / Time Penicillins Allergy Rash/Hives Verified 06/19/21 14:06 azithromycin [From Zithromax] AdvReac Unknown Verified 06/19/21 14:06 peach AdvReac Nausea & Verified 06/19/21 14:06 Vomiting & Diarrhea Review of Systems ROS Statement: Those systems with pertinent positive or pertinent negative responses have been documented in the HPI. ROS Other: All systems not noted in ROS Statement are negative. Past Medical History Past Medical History: No Reported History Additional Past Medical History / Comment(s): sinusitis History of Any Multi-Drug Resistant Organisms: None Reported Past Surgical History: Adenoidectomy, Appendectomy Past Anesthesia/Blood Transfusion Reactions: No Reported Reaction Past Psychological History: No Psychological Hx Reported Smoking Status: Current every day smoker, Vaper Past Alcohol Use History: Occasional Past Drug Use History: Marijuana - Past Family History Mother Additional Family Medical History / Comment(s): CHF General Exam Limitations: no limitations General appearance: alert, in no apparent distress Head exam: Present: atraumatic, normocephalic, normal inspection Eye exam: Present: normal appearance, PERRL, EOMI. Absent: scleral icterus, conjunctival injection, periorbital swelling ENT exam: Present: mucous membranes moist, TM's normal bilaterally. Absent: normal exam, normal oropharynx (Mild erythema) Neck exam: Present: normal inspection. Absent: tenderness, meningismus, lymphadenopathy Respiratory exam: Present: normal lung sounds bilaterally. Absent: respiratory distress, wheezes, rales, rhonchi, stridor Cardiovascular Exam: Present: regular rate, normal rhythm, normal heart sounds. Absent: systolic murmur, diastolic murmur, rubs, gallop, clicks GI/Abdominal exam: Present: soft, normal bowel sounds. Absent: distended, tenderness, guarding, rebound, rigid Neurological exam: Present: alert Skin exam: Present: warm, dry, intact, normal color. Absent: rash Course Vital Signs 06/19/21 14:06 Temperature 102.6 F H Pulse Rate 91 Respiratory 18 Rate Blood Pressure 123/70 O2 Sat by Pulse 99 Oximetry Medical Decision Making - Medical Decision Making X-ray: covid 19 and strep from negative. Patient still has some mild tonsillitis we discharged stable condition return parameters were discussed. - Lab Data Lab Results 06/19/21 06/19/21 Range/Units 14:25 14:27 Coronavirus (PCR) Not Detected (Not Detectd) Group A Strep Rapid Negative (Negative) Disposition Clinical Impression: URI (upper respiratory infection), Acute pharyngitis Disposition: HOME SELF-CARE Condition: Stable Instructions (If sedation given, give patient instructions): Pharyngitis (ED) Additional Instructions: Please return to the Emergency Department if symptoms worsen or any other concerns. Prescriptions: Cefuroxime Axetil [Ceftin] 500 mg PO BID #20 tab Is patient prescribed a controlled substance at d/c from ED?: No Referrals: Zheng Camarillo MD [Primary Care Provider] - 1-2 days Time of Disposition: 14:58
[2021-06-19 15:19] VITALS: BP 120/72; PULSE 72; RESP 16; TEMP 98.9
== END 2021-06-19 15:19 | disposition home or self-care (01) ==
LOC: EC 13:37
DX: J02.9 Acute pharyngitis, unspecified (principal); F17.290 Nicotine dependence, other tobacco product, uncomplicated; F12.90 Cannabis use, unspecified, uncomplicated; Z20.822 Contact with and (suspected) exposure to COVID-19; Z88.0 Allergy status to penicillin
CPT/HCPCS: 71046; 87081; 87430; 87635; 99283